=== PATIENT | male | born 1970 | race Caucasian/White ===

== ENCOUNTER 2020-03-05 21:25 | Emergency (ER) | payer SELFPAY ==
[~2020-03-05] VITALS: Ht 170.2 cm; Wt 74.8 kg
[2020-03-05 21:29] VITALS: Ht 170.2 cm; Wt 74.8 kg
[2020-03-05 23:46] VITALS: BP 100/46
== END 2020-03-05 23:45 | disposition home or self-care (01) ==
LOC: ED 21:25
DX: S93.402A Sprain of unspecified ligament of left ankle, initial encounter (principal); X58.XXXA Exposure to other specified factors, initial encounter; Y93.89 Activity, other specified; Y92.89 Other specified places as the place of occurrence of the external cause; Y99.8 Other external cause status
CPT/HCPCS: Q0092

== ENCOUNTER 2020-03-06 03:25 | Emergency (ER) | payer SELFPAY ==
[~2020-03-06] VITALS: Ht 170.2 cm; Wt 74.8 kg
[2020-03-06 03:47] VITALS: Ht 170.2 cm; Wt 74.8 kg
[2020-03-06 03:53] VITALS: BP 133/92
== END 2020-03-06 03:54 | disposition home or self-care (01) ==
LOC: ED 03:25
DX: S93.402A Sprain of unspecified ligament of left ankle, initial encounter (principal); X58.XXXA Exposure to other specified factors, initial encounter; Y93.89 Activity, other specified; Y92.89 Other specified places as the place of occurrence of the external cause; Y99.8 Other external cause status